=== PATIENT | female | born 1990 | race Caucasian/White ===

== ENCOUNTER 2016-06-29 13:29 | Emergency (ER) | payer OTHER | END 2016-06-29 16:19 | disposition home or self-care (01) | DX: O03.4 Incomplete spontaneous abortion without complication (principal); Z3A.01 Less than 8 weeks gestation of pregnancy ==

== ENCOUNTER 2017-10-15 13:02 | Outpatient (CLI) | payer OTHER | END 2017-10-15 13:03 | disposition home or self-care (01) | LOC: SC 13:02 | PROVIDERS: ATTEND Internal Medicine Pulmonary Disease | DX: G47.21 Circadian rhythm sleep disorder, delayed sleep phase type (principal); G47.8 Other sleep disorders; G47.10 Hypersomnia, unspecified; R53.83 Other fatigue | CPT/HCPCS: 99203; 99212 ==

== ENCOUNTER 2020-08-27 07:34 | Outpatient (CLI) | payer OTHER ==
--- NOTE | 2020-08-27 17:42 | Ultrasound Report ---
PROCEDURE: OB F/U or Repeat INDICATIONS: UTERINE SIZE-DATE DISCREPANCY OUTSIDE/PRIOR DATING DATA: Last menstrual period (LMP): 02/08/2020. LMP-based estimated date of delivery (LANIE): 11/14/2020. TECHNIQUE: Real-time scanning was performed of the fetus, with image documentation and biometric measurements. Endovaginal scanning: Not needed COMPARISON: 06/28/2020 OB ultrasound. FINDINGS: General: A single living intrauterine gestation is present. Presentation: Breech Placenta: Placental position is anterior, without previa. Amniotic fluid index: 12.7 cm, 29.3 for gestational age. heart rate: 153 beats per minute. Maternal cervical canal: Normal. biometrics: Biparietal diameter: 7.7 cm, 31 weeks 0 days Head circumference: 29.1 cm, 32 weeks 0 days Abdominal circumference: 26.1 cm, 30 weeks 2 days Femur length: 5.3 cm, 28 weeks 1 day Estimated gestational age from initial scan: 29 weeks 5 days. Composite gestational age from present scan: 30 weeks 3 days Estimated weight and percentile: 1455 g, 39.5 percentile Measurement variability in biometric dating: +/- 10 days from 12-20 weeks gestation, +/- 2 weeks from 20-30 weeks gestation, +/- 3 weeks at 30 weeks gestation or more. Other: Not applicable. IMPRESSION: Single living intrauterine gestation with appropriate weight and amniotic fluid. G rowth parameters are internally consistent. No anomaly is seen. Reviewed by: Baljinder Marie MD on 08/27/2020 5:40 PM PST Approved by: Baljinder Marie MD on 08/27/2020 5:40 PM PST Station ID: [id number]
== END 2020-08-27 07:35 | disposition home or self-care (01) ==
LOC: DI 07:34
PROVIDERS: ATTEND Nurse Practitioner Obstetrics & Gynecology
DX: O26.843 Uterine size-date discrepancy, third trimester (principal); Z3A.30 30 weeks gestation of pregnancy

== ENCOUNTER 2020-09-03 11:04 | Outpatient (CLI) | payer OTHER ==
[2020-09-03 12:33] LABS: HCT - HEMATOCRIT 41.4 % (37.0-47.0); HGB - HEMOGLOBIN 13.4 g/dL (12.0-16.0); MEAN CORPUSCULAR HEMOGLOBIN 29.1 pg (27.0-31.0); MEAN CORPUSCULAR HGB CONC 32.4 g/dL (32.0-36.0); MEAN CORPUSCULAR VOLUME 89.8 fL (81.0-99.0); MEAN PLATELET VOLUME 9.8 fL (7.9-10.8); RED BLOOD COUNT 4.61 10^6/uL (4.20-5.40); RED CELL DISTRIBUTION WIDTH 12.6 % (12.0-15.0); WHITE BLOOD COUNT 11.8 x10^3/uL (4.8-10.8)
== END 2020-09-03 11:05 | disposition home or self-care (01) ==
LOC: LAB 11:04
PROVIDERS: ATTEND Nurse Practitioner Obstetrics & Gynecology
DX: Z36.8A Encounter for antenatal screening for other genetic defects (principal); Z36.89 Encounter for other specified antenatal screening
CPT/HCPCS: 36415; 81220; 81243; 81329; 81599; 82950; 85027; 86850; 86900; 86901

== ENCOUNTER 2020-10-07 15:13 | Outpatient (CLI) | payer OTHER ==
[2020-10-07 15:28] VITALS: BP 130/72
--- NOTE | 2020-10-07 16:26 | PROVIDER PROGRESS NOTE ---
- HPI Chief Complaint: Labor Check Current : Current EDU 11/07/20 Gestation 35 Weeks and 4 Days 2 Para 1 Vital Signs Temperature 36.8 C 10/07/20 15:27 Heart Rate 103 H 10/07/20 15:27 Respiratory Rate 17 10/07/20 15:27 Blood Pressure 130/72 10/07/20 15:27 O2 Saturation 100 10/07/20 15:27 Temperature 36.8 C 10/07/20 15:27 Heart Rate 103 H 10/07/20 15:27 Respiratory Rate 17 10/07/20 15:27 Blood Pressure 130/72 10/07/20 15:27 O2 Saturation 100 10/07/20 15:27 - Procedures OB Procedure Performed: NST - Plan Plan: Carli is a at 35.4wks gestation who presents with ongoing contractions for the last couple weeks that have intensified in the last 36hours. She denies LOF, VB, or severe pain. She endorses movement SVE: 07/14/-3 (this is unchanged from an office visit last week) FHT 130 moderate variability, accels, no decels Utx- palpate mild. Occurring every 5-10minutes A: False labor FHT Cat I P: Discharge to home with labor contractions Continue with routine care
== END 2020-10-07 16:28 | disposition home or self-care (01) ==
LOC: WFO 15:13 → FBP 15:14 → WFO 16:28
PROVIDERS: ATTEND Advanced Practice Midwife
DX: O47.03 False labor before 37 completed weeks of gestation, third trimester (principal); Z3A.37 37 weeks gestation of pregnancy
CPT/HCPCS: 99214

== ENCOUNTER 2020-10-11 09:56 | Outpatient (CLI) | payer OTHER ==
[2020-10-11 10:36] LABS: BASOPHILS % (AUTO) 0.3 %; EOSINOPHILS # (AUTO) 0.1 10^3/uL (0.0-0.7); EOSINOPHILS % (AUTO) 0.6 %; HCT - HEMATOCRIT 36.7 % (37.0-47.0); LYMPHOCYTES # (AUTO) 1.7 10^3/uL (1.5-3.5); LYMPHOCYTES % (AUTO) 14.9 %; MEAN CORPUSCULAR HEMOGLOBIN 28.4 pg (27.0-31.0); MEAN CORPUSCULAR HGB CONC 32.7 g/dL (32.0-36.0); MEAN CORPUSCULAR VOLUME 86.8 fL (81.0-99.0); MEAN PLATELET VOLUME 9.9 fL (7.9-10.8); MONOCYTES # (AUTO) 0.7 10^3/uL (0.0-1.0); MONOCYTES % (AUTO) 5.8 %; NEUTROPHILS # (AUTO) 8.9 10^3/uL (1.5-6.6); PLT - PLATELET COUNT 234 10^3/uL (130-450); RED BLOOD COUNT 4.23 10^6/uL (4.20-5.40); RED CELL DISTRIBUTION WIDTH 13.2 % (12.0-15.0); WHITE BLOOD COUNT 11.5 x10^3/uL (4.8-10.8)
[2020-10-11 10:48] LABS: ALBUMIN 2.9 g/dL (3.2-5.5); ALBUMIN/GLOBULIN RATIO 0.9 (1.0-2.2); BILIRUBIN,TOTAL 0.2 mg/dL (0.2-1.0); CALCIUM 8.7 mg/dL (8.5-10.3); CREATININE 0.7 mg/dL (0.4-1.0); POTASSIUM 3.6 mmol/L (3.5-5.0); TOTAL PROTEIN 6.3 g/dL (6.7-8.2)
[2020-10-11 10:57] LABS: BILIRUBIN,URINE NEGATIVE (NEGATIVE); GLUCOSE, URINE (UA) NEGATIVE (NEGATIVE); KETONES,URINE (UA) TRACE mg/dL (NEGATIVE); LEUKOCYTE ESTERASE, URINE NEGATIVE (NEGATIVE); NITRITE,URINE NEGATIVE (NEGATIVE); OCCULT BLOOD,URINE NEGATIVE (NEGATIVE); PROTEIN,URINE NEGATIVE (NEGATIVE); UROBILINOGEN,URINE 0.2 (NORMAL) E.U./dL (NORMAL)
[2020-10-11 11:01] LABS: CLARITY,URINE CLEAR (CLEAR)
[2020-10-11 11:08] LABS: CREATININE,URINE 197.5 mg/dL; PROTEIN/CREATININE RATIO,URINE 0.1 (<=0.2)
[2020-10-11 14:35] VITALS: BP 136/87
--- NOTE | 2020-10-11 15:28 | PROVIDER PROGRESS NOTE ---
- HPI Chief Complaint: Other Current : Current EDU 11/07/20 Gestation 36 Weeks and 1 Days 2 Para 1 Vital Signs Temperature 36.7 C 10/11/20 10:02 Heart Rate 121 H 10/11/20 10:02 Respiratory Rate 20 10/11/20 10:02 Blood Pressure 143/100 H 10/11/20 10:02 O2 Saturation 99 10/11/20 10:02 Temperature 36.7 C 10/11/20 10:02 Heart Rate 80 10/11/20 14:35 Respiratory Rate 16 10/11/20 14:35 Blood Pressure 136/87 H 10/11/20 14:35 O2 Saturation 100 10/11/20 14:35 - Procedures OB Procedure Performed: NST NST Procedure: NST Procedure Start Date 10/11/20 Start Time 09:57 Stop Time 10:57 Vibroacoustic Stimulation Used No Patient States Movement Yes: Decreased - Plan Plan: patient evaluated face to face S: Carli presents today as directed following her routine visit after c/o abdominal pain. She reports the pain is 6/10 and she intermittently has to breathe through the pain. She denies it is exacerbated by movement. She denies HERNANDEZ, or visual disturbances. Denies urinary symptoms. Reports regular bowel movement yesterday morning. Denies eating anything out of the ordinary for her. Feels well hydrated and ate a muffin for breakfast. She reports +FM and she denies vaginal bleeding or leakage of fluid. She does report losing her mucus plug yesterday. She denies the pain feels like contractions. She states it is constant and describes a burning sensation in the right lower quadrant. She states it feels deep muscle-like. Denies fever, chills, or body aches. O: NST performed 10/11/2020 NST read 10/11/2020 Initially NST revealed tachycardia with minimal variability and a BPP was performed which was 8/8. NST quickly improved. NST reactive. FHR baseline 140, moderate variability, + accels, no decels. Occasional contractions via tocometry which palpate mild with soft resting tone. BP 130s-140s/80s-90s CBC WNL CMP WNL UA neg Normocephalic, atraumatic Heart RRR w/o M/G/R Lungs CTAB Abdomen gravid and soft. Right lower quadrant tender to palpation. No abdominal rigidity noted. SVE fingertip/25/unengaged. No evidence of vaginal bleeding Bedside ultrasound reveals single, viable intrauterine in BREECH presentation. No evidence of placental abruption via preliminary report. Pt is s/p cholecystectomy. Appendix not visualized on examination. A: 30yo @ 36.1wks gestation BREECH presentation Right lower quadrant abdominal pain - suspect muscular in origin Mild, intermittent elevated BP without the diagnosis for hypertension FHR Category I P: Reviewed warning s/sx and when to present. Return for BP check in the office on . Reviewed PI warning s/sx and when to present urgently. Pt desires attempted external cephalic version - will determine physician workers compensation paralegal and consult to schedule at 37.1wks gestation. Pt verbalized understanding and agrees to above plan. She denies further questions or concerns at this time.
--- NOTE | 2020-10-13 15:09 | Ultrasound Report ---
PROCEDURE: Abdomen Limited INDICATIONS: right sided abd pain, nausea, HTN, LANIE 11/07/2020 TECHNIQUE: Real-time focused scanning was performed of the abdomen, with image documentation. COMPARISON: None FINDINGS: Gallbladder: Cholecystectomy Appendix: Nonvisualized Right kidney: Unremarkable. No evidence of hydronephrosis. IMPRESSION: Nonvisualized appendix. Appendicitis is not excluded. Cholecystectomy Reviewed by: Gerard Alvarez MD on 10/11/2020 1:33 PM PDT Approved by: Gerard Alvarez MD on 10/11/2020 1:33 PM PDT Station ID: [id number]
--- NOTE | 2020-10-13 15:09 | Ultrasound Report ---
PROCEDURE: OB Biophysical Profile INDICATIONS: tachycardia that is now resolved. Donovan decel OUTSIDE/PRIOR DATING DATA: Last menstrual period (LMP): 02/08/2020. LMP-based estimated date of delivery (LANIE): 11/14/2020. First dating scan (date and location): 08/27/2020. Estimated date of delivery (LANIE) from first dating scan: 10/28/2020. TECHNIQUE: Real-time scanning was performed of the fetus, with image documentation and biometric courtney surements. Biophysical profile was also obtained. Endovaginal scanning: Not needed COMPARISON: 08/27/2020 FINDINGS: General: A single living intrauterine gestation is present. Presentation: Breech Placenta: Placental position is anterior, without previa. Amniotic fluid index: 9.0 cm, 9.9 percentile for gestational age. heart rate: 135 beats per minute. Maternal cervical canal: 5.0 cm long; normal length is 2.5 cm or more. Biophysical profile: Tone: 2 points. Movement: 2 points. Respiration: 2 points. Largest pocket of fluid: 2 points. Umbilical artery Doppler: SD ratio 2.19 at the mid cord IMPRESSION: Single live intrauterine consistent with 36 week 1 day gestation Breech presentation. Reviewed by: Gerard Alvarez MD on 10/11/2020 1:45 PM PDT Approved by: Gerard Alvarez MD on 10/11/2020 1:45 PM PDT Station ID: [id number]
== END 2020-10-11 15:00 | disposition home or self-care (01) ==
LOC: WFO 09:56 → FBP 10:00 → WFO 15:00
PROVIDERS: ATTEND Nurse Practitioner Obstetrics & Gynecology
DX: O99.891 Other specified diseases and conditions complicating pregnancy (principal); R10.31 Right lower quadrant pain; O36.8330 Maternal care for abnormalities of the fetal heart rate or rhythm, third trimester, not applicable or unspecified; O32.1XX0 Maternal care for breech presentation, not applicable or unspecified; Z3A.36 36 weeks gestation of pregnancy
CPT/HCPCS: 36415; 59025; 80053; 81001; 81003; 82570; 84156; 85025; 87086; 99213

== ENCOUNTER 2020-10-12 08:00 | Outpatient (CLI) | payer OTHER | END 2020-10-12 23:59 | disposition home or self-care (01) | LOC: LAB.R 08:00 | PROVIDERS: ATTEND Advanced Practice Midwife | DX: Z36.85 Encounter for antenatal screening for Streptococcus B (principal) | CPT/HCPCS: 87797 ==

== ENCOUNTER 2020-10-18 11:25 | Outpatient (CLI) | payer OTHER ==
[2020-10-18] MEDS ORDERED: TERBUTALINE 1 MG/ML VIAL SUBQ ONE (11:40)
[2020-10-18] MEDS ORDERED: ONDANSETRON ODT 4 MG TABLET TL PRN (11:40)
[2020-10-18] MEDS ORDERED: fentaNYL 100 MCG/2 ML VIAL IVP PRN (11:41)
[2020-10-18] MEDS ORDERED: MINERAL OIL LIGHT 10 ML MC ONE (11:41)
[2020-10-18] MEDS ORDERED: ONDANSETRON 4 MG/2 ML VIAL IVP PRN (11:42)
[2020-10-18 11:59] VITALS: BP 137/87
[2020-10-18] MEDS ORDERED: LACTATED RINGERS 1,000 ML IV ONE ×2 (12:33→12:37)
[2020-10-18 12:40] LABS: BASOPHILS % (AUTO) 0.2 %; EOSINOPHILS # (AUTO) 0.1 10^3/uL (0.0-0.7); EOSINOPHILS % (AUTO) 0.6 %; HCT - HEMATOCRIT 38.5 % (37.0-47.0); HGB - HEMOGLOBIN 12.3 g/dL (12.0-16.0); LYMPHOCYTES # (AUTO) 1.6 10^3/uL (1.5-3.5); LYMPHOCYTES % (AUTO) 13.4 %; MEAN CORPUSCULAR HGB CONC 31.9 g/dL (32.0-36.0); MEAN CORPUSCULAR VOLUME 87.7 fL (81.0-99.0); MEAN PLATELET VOLUME 10.5 fL (7.9-10.8); MONOCYTES % (AUTO) 7.9 %; NEUTROPHILS # (AUTO) 9.2 10^3/uL (1.5-6.6); NEUTROPHILS % (AUTO) 76.8 %; PLT - PLATELET COUNT 239 10^3/uL (130-450); RED BLOOD COUNT 4.39 10^6/uL (4.20-5.40); RED CELL DISTRIBUTION WIDTH 13.2 % (12.0-15.0)
--- NOTE | 2020-10-18 14:31 | Ultrasound Report ---
PROCEDURE: OB Limited INDICATIONS: MICHELLE for external version procedure OUTSIDE/PRIOR DATING DATA: Last menstrual period (LMP): 02/08/2020. LMP-based estimated date of delivery (LANIE): 11/14/2020. TECHNIQUE: Real-time scanning was performed of the fetus, with image documentation. Endovaginal scanning: . Not needed. COMPARISON: All prior OB ultrasound studies for this . FINDINGS: A single living intrauterine gestation is present. Presentation: Breech Placenta: Placental position is anterior leftward, without previa. Amniotic fluid index: 8.7 cm, 9.6 percentile for gestational age. heart rate: 140 beats per minutes. Maternal cervical canal: 3.9 cm long; normal length is 2.5 cm or more. Estimated gestational age from initial scan: 37 weeks 1 day. IMPRESSION: 8.7 cm amniotic fluid index, the lower 9.6 percentile for current gestational age. Reviewed by: Baljinder Marie MD on 10/18/2020 2:30 PM PDT Approved by: Baljinder Marie MD on 10/18/2020 2:30 PM PDT Station ID: [id number]
--- NOTE | 2020-10-21 19:12 | PROVIDER PROGRESS NOTE ---
- HPI Chief Complaint: Other (Planned ECV for breech presentation) Current : Current EDU 11/07/20 Gestation 37 Weeks and 1 Days 2 Para 1 Vital Signs Temperature 98.4 F 10/18/20 11:59 Heart Rate 105 H 10/18/20 11:59 Respiratory Rate 16 10/18/20 11:59 Blood Pressure 137/87 H 10/18/20 11:59 O2 Saturation 97 10/18/20 11:59 Temperature 98.4 F 10/18/20 11:59 Heart Rate 105 H 10/18/20 11:59 Respiratory Rate 16 10/18/20 11:59 Blood Pressure 137/87 H 10/18/20 11:59 O2 Saturation 97 10/18/20 11:59 - Exam Paitient is a 30 yo at 37+1 wga with breech presentation here for attempted version. Patient has had one prior vacuum assisted vaginal delivery with shoulder dystocia ten years ago. Patient has been followed by [facility] this and was noted to have breech presentation. She has had en episode of mildly elevated blood pressures about one week ago with neg PIH labs. Allergies: acetaminophen-oxycodone OB Hx: G1: 2010, 6lb4oz male VAVD@ 40wks G2: current PMHx: Surgical Hx: cholecystectomy (2015), breast augmentation (2011), tonsillectomy (2003) Social Hx: Never smoker, no ETOH use in . No IVDA. She is Active duty. FOB Active duty. Family Hx: Diabetes - Father; HTN- farher; [place]-father; Testicular cancer (living)-father; [place]- MGF; Breast cancer - breast cancer PNC as below: LMP 02/08/2020 but reports very irregular menses. Initial U/S 04/11/2020 @ 10.3wks gestation by CRL differs 6 days from LMP dating (irregalar menses) LANIE by U/S 11/07/2020. U/S performed by [facility]. 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 Awaiting FOB results; SMA- negative, Fragile x- negative FAS: 07/08/2020 WNL. Anterior placenta, no previa. 3VC. Size c/w dating. Growth and MICHELLE secondary to size > dates WNL (EFW 39.5%) Glucola: 130 Influenza: declined TDAP: 08/13/2020 GBS & GC/CT at 36 weeks HSV: denies in self and partner Breast pump Rx provided MOD: Anticipate ; FOB Frank Benitez. ; 9yo son - Dov; It's a BOY! - Cameron; desires unmedicated delivery FOB for CF screen Frank Benitez 04/22/72 pp contraception: condoms pap: 2018 neg; neg HPV - Procedures OB Procedure Performed: NST Diagnosis/Indication for NST: Other (pre-procedure for ECV) NST Procedure: NST Procedure Start Date 10/18/20 Start Time 11:45 Stop Time 12:25 Vibroacoustic Stimulation Used No Patient States Movement Yes EFM 145 mod philomena 15x15 accels no decels TOCO: quiet Service Date of procedure: 10/18/20 Findings: GEN: NAD HEAD: NCAT EYES: No scleral icterus or conjunctival injection CV: RRR RESP: CTAB, normal effort ABD: S&NT/ND PSYCH: appropriate affect NEURO: alert and oriented, normal gait and coordination EXT: WWP Breech/transverse presentation with head on maternal left Anterior placenta Bedside us with low MICHELLE RLQ had about 6 cm pocket far lateral edge but not while proble was maintained at 90 to floor. MVP outside 1st quadrant is about 1 cm. Large pcokets of cord with scant fluid. True MICHELLE wabout 6.4 cm Ordered formal US and observed MICHELLE Read as 8.4 but included RLQ pocket measured with probe at 180 to floor; technically inaccurate for MICHELLE measurement - Plan Plan: 30 yo at 37+1 with breech presentation and borderline MICHELLE Reviewed R/B/A to procedure with patient and partner I reviewed my MICHELLE findings and my concern for low likelihood of success given scant fluid and the increased risk of distress given large pockets of umbilical cord without fluid insulation, making it more likely that cord compression may result in distress. Recommended IV fluid bolus, pushing water overnight and repeating attempt in 1-2 days Patient and partner are in agreement with plan. -1000 ml IV bolus of NS given -Cat I tracing DX: Breech presentation at 37+1 wga Borderline MICHELLE More than 45 minutes was spent with patient in face to face contact including bedside US, additional bedside review of formal US with concurrent interpretation of real time images, face to face employee counselor.
== END 2020-10-18 13:30 | disposition home or self-care (01) ==
LOC: WFO 11:25 → FBP 11:27 → WFO 13:30
PROVIDERS: ATTEND Obstetrics & Gynecology
DX: O32.1XX0 Maternal care for breech presentation, not applicable or unspecified (principal); Z3A.37 37 weeks gestation of pregnancy; O41.93X0 Disorder of amniotic fluid and membranes, unspecified, third trimester, not applicable or unspecified
CPT/HCPCS: 76815; 85025; 86850; 86900; 86901; J7120; 59025; 99213

== ENCOUNTER 2020-10-21 07:58 | Outpatient (CLI) | payer OTHER ==
[2020-10-21] MEDS ORDERED: fentaNYL 100 MCG/2 ML VIAL IVP PRN (08:25)
[2020-10-21] MEDS ORDERED: MINERAL OIL LIGHT 10 ML MC ONE (08:25)
[2020-10-21] MEDS ORDERED: TERBUTALINE 1 MG/ML VIAL SUBQ ONE (08:25)
[2020-10-21] MEDS ORDERED: ONDANSETRON 4 MG/2 ML VIAL IVP ONE (09:00)
[2020-10-21 09:18] VITALS: BP 143/93
--- NOTE | 2020-10-21 09:48 | Ultrasound Report ---
PROCEDURE: OB Limited INDICATIONS: Version OUTSIDE/PRIOR DATING DATA: Last menstrual period (LMP): 02/08/2020. LMP-based estimated date of delivery (LANIE): 11/14/2020 Estimated date of delivery (LANIE) according to referring provider: 11/07/2020. TECHNIQUE: Real-time scanning was performed of the fetus, with image documentation. COMPARISON: 10/11/2020 FINDINGS: A single living intrauterine gestation is present. Presentation: Breech Placenta: Placental position is anterior, without previa. Amniotic fluid index: 8.7 cm, 9.6% for gestational age, largest pocket 5.2 cm (previous fluid measure ment on 10/11/2020 was 12.7 cm). heart rate: 140 beats per minutes. Maternal cervical canal: 3.9 cm long; normal length is 2.5 cm or more. Estimated gestational age according to referring provider: 37 weeks 4 days. IMPRESSION: 1. Living late third trimester intrauterine . 2. MICHELLE measures 8.7 cm. Reviewed by: Malvin Conner MD on 10/21/2020 9:46 AM PDT Approved by: Malvin Conner MD on 10/21/2020 9:46 AM PDT Station ID: [id number]
[2020-10-21 10:10] LABS: BASOPHILS % (AUTO) 0.2 %; EOSINOPHILS # (AUTO) 0.1 10^3/uL (0.0-0.7); EOSINOPHILS % (AUTO) 0.8 %; HGB - HEMOGLOBIN 12.6 g/dL (12.0-16.0); LYMPHOCYTES # (AUTO) 1.7 10^3/uL (1.5-3.5); LYMPHOCYTES % (AUTO) 12.8 %; MEAN CORPUSCULAR HEMOGLOBIN 28.9 pg (27.0-31.0); MEAN CORPUSCULAR HGB CONC 33.2 g/dL (32.0-36.0); MEAN CORPUSCULAR VOLUME 87.2 fL (81.0-99.0); MEAN PLATELET VOLUME 11.2 fL (7.9-10.8); MONOCYTES # (AUTO) 0.9 10^3/uL (0.0-1.0); MONOCYTES % (AUTO) 6.8 %; NEUTROPHILS # (AUTO) 10.6 10^3/uL (1.5-6.6); PLT - PLATELET COUNT 254 10^3/uL (130-450); RED BLOOD COUNT 4.36 10^6/uL (4.20-5.40); RED CELL DISTRIBUTION WIDTH 13.5 % (12.0-15.0); WHITE BLOOD COUNT 13.6 x10^3/uL (4.8-10.8)
[2020-10-21 10:27] LABS: CREATININE,URINE 37.6 mg/dL; TOTAL PROTEIN,URINE TIMED < 6 mg/dL
[2020-10-21 11:06] LABS: B. PARAPERTUSSIS- RESP PCR PAN NOT DETECTED; B. PERTUSSIS- RESP PCR PANEL NOT DETECTED; C. PNEUMONIAE- RESP PCR PANEL NOT DETECTED; CORONAVIRUS 229E-RESP PCR NOT DETECTED; CORONAVIRUS HKU1-RESP PCR NOT DETECTED; CORONAVIRUS NL63-RESP PCR NOT DETECTED; CORONAVIRUS OC43-RESP PCR NOT DETECTED; HUMAN METAPNEUMOVIRUS NOT DETECTED; INFLUENZA A- RESP PCR PANEL NOT DETECTED; INFLUENZA B - RESP PCR PANEL NOT DETECTED; M. PNEUMONIAE- RESP PCR PANEL NOT DETECTED; PARAINFLUENZA VIRUS 1 NOT DETECTED; PARAINFLUENZA VIRUS 2 NOT DETECTED; PARAINFLUENZA VIRUS 3 NOT DETECTED; PARAINFLUENZA VIRUS 4 NOT DETECTED; RHINOVIRUS/ENTEROVIRUS NOT DETECTED; RSV- RESP PCR PANEL NOT DETECTED; SARS-CoV-2 -RESP PCR PANEL NOT DETECTED
--- NOTE | 2020-10-22 08:04 | PROVIDER PROGRESS NOTE ---
- HPI Chief Complaint: Malpresentation of fetus Current : Current EDU 11/07/20 Gestation 37 Weeks and 4 Days 2 Para 1 Vital Signs Temperature 98.2 F 10/21/20 08:19 Heart Rate 115 H 10/21/20 08:19 Respiratory Rate 18 10/21/20 08:19 Blood Pressure 151/96 H 10/21/20 08:19 Temperature 98.2 F 10/21/20 08:19 Heart Rate 115 H 10/21/20 08:19 Respiratory Rate 18 10/21/20 08:19 Blood Pressure 143/93 H 10/21/20 09:17 O2 Saturation - Exam GEN: NAD HEAD: NCAT EYES: No scleral icterus or conjunctival injection CV: RRR RESP: CTAB, normal effort ABD: S&NT/ND PSYCH: appropriate affect NEURO: alert and oriented, normal gait and coordination EXT: WWP MICHELLE 6.4 on prelim read NST 140 mod philomena 15x15 accels no decels TOCO: quiet - Procedures OB Procedure Performed: NST Diagnosis/Indication for NST: Other (preprocedure for ECV) NST Procedure: NST Procedure Start Date 10/21/20 Start Time 08:06 Stop Time 08:45 Vibroacoustic Stimulation Used No Patient States Movement Yes Service Date of procedure: 10/21/20 Findings: MICHELLE prelim read was 6.4 cm Cat Delio call Reviewed risks with patient. Patient opting for BPs elevated to mild range No PIH symptoms Normal PIH labs Reviewed clinic records. Has had several mild range pressures after 20 weeks; meets criteria for GHTN With GHTN and borderline MICHELLE, recommend proceeding with CS at 37 weeks Scheduled for 10/22/20 R/B/A reviewed and written informed consents was obtained Preop labs and prior auth obtained CS scheduled for 10/22/20 at 10:30 am - Plan Plan: 35 yo at 37+4 with breech presentation, borderline MICHELLE, and GHTN Reviewed findings Proceeding with CS on 10/22/20 Written informed consent obtained DX: IUP at 37+4 Breech GHTN Borderline MICHELLE
== END 2020-10-21 10:22 | disposition home or self-care (01) ==
LOC: WFO 07:58 → FBP 08:00 → WFO 10:22
PROVIDERS: ATTEND Obstetrics & Gynecology
DX: O32.1XX0 Maternal care for breech presentation, not applicable or unspecified (principal); O13.3 Gestational [pregnancy-induced] hypertension without significant proteinuria, third trimester; Z3A.37 37 weeks gestation of pregnancy; Z20.822 Contact with and (suspected) exposure to COVID-19
CPT/HCPCS: 0202U; 36415; 59025; 76815; 82570; 83615; 84156; 84450; 84550; 85025; 99213

== ENCOUNTER 2020-10-22 08:23 | Inpatient (IN) | payer OTHER ==
[2020-10-22] MEDS ORDERED: OXYTOCIN/SODIUM CHLORIDE 500 ML IV PRN ×2 (08:51→13:17)
[2020-10-22] MEDS ORDERED: oxyCODONE 5 MG TABLET PO PRN (08:51)
[2020-10-22] MEDS ORDERED: SODIUM CHLORIDE FLUSH 0.9% 10 ML SYRINGE IVP PRN (08:51)
[2020-10-22] MEDS ORDERED: ONDANSETRON ODT 4 MG TABLET TL PRN ×2 (08:51→13:17)
[2020-10-22] MEDS ORDERED: SIMETHICONE CHEW 80 MG TABLET PO PRN (08:51)
[2020-10-22] MEDS ORDERED: ACETAMINOPHEN 500 MG TABLET PO SCH (09:00)
[2020-10-22] MEDS ORDERED: KETOROLAC 30 MG/ML VIAL IVP SCH (09:00)
[2020-10-22] MEDS ORDERED: LACTATED RINGERS 1,000 ML IV SCH ×2 (09:00→11:00)
[2020-10-22] MEDS ORDERED: DOCUSATE SODIUM 100 MG CAPSULE PO SCH (09:00)
[2020-10-22] MEDS ORDERED: SODIUM CHLORIDE FLUSH 0.9% 10 ML SYRINGE IVP SCH ×2 (09:00→17:00)
[2020-10-22] MEDS ORDERED: fentaNYL 100 MCG/2 ML VIAL IVP PRN (10:06)
[2020-10-22] MEDS ORDERED: HYDROmorphone 0.5 MG/0.5 ML SYRINGE IVP PRN (10:06)
[2020-10-22] MEDS ORDERED: NALOXONE 0.4 MG/ML VIAL IVP PRN ×2 (10:06→12:12)
[2020-10-22] MEDS ORDERED: MORPHINE 2 MG/ML CARPUJECT IVP PRN (10:06)
[2020-10-22] MEDS ORDERED: METOCLOPRAMIDE 10 MG/2 ML VIAL IVP PRN (10:06)
[2020-10-22] MEDS ORDERED: ePHEDrine 50 MG/ML VIAL IVP PRN (10:06)
[2020-10-22] MEDS ORDERED: ATROPINE ABBOJECT 1 MG/10 ML SYRINGE IVP PRN (10:06)
[2020-10-22] MEDS ORDERED: ONDANSETRON 4 MG/2 ML VIAL IVP PRN (10:06)
--- NOTE | 2020-10-22 10:06 | ANESTHESIA ---
Pre-Anesthesia VS, & Labs - Diagnosis breech presentation - Procedure Primary section Vital Signs: Temp Pulse Resp BP Pulse Ox 37.2 C 10/22/20 09:33 Height: 5 ft 5 in Weight (kg): 98.702 kg Body Mass Index: 36.2 BMI Classification: Obese - NPO >8 hours - Is Patient ?: Yes - Lab Results Lab results reviewed: Yes Home Medications and Allergies Active Medications Acetaminophen (Acetaminophen 500 Mg Tablet) 1,000 mg PO Q8H [facility] Docusate Sodium (Docusate Sodium 100 Mg Capsule) 100 mg PO BID JF Oxytocin/Sodium Chloride (Pitocin/Sodium Chloride) 500 mls @ 999 mls/hr IV PRN PRN; Protocol PRN Reason: POST- HEMORR PREVENTION Lactated Ringer's (Lr) 1,000 mls @ 100 mls/hr IV .Q10H [facility] Ibuprofen (Ibuprofen 600 Mg Tablet) 600 mg PO Q6H [facility] Ketorolac Tromethamine (Ketorolac 30 Mg/Ml Vial) 30 mg IVP Q6H [facility] Stop: 10/23/20 03:01 Ondansetron HCl (Ondansetron Odt 4 Mg Tablet) 4 mg TL Q4H PRN PRN Reason: Nausea / Vomiting Oxycodone HCl (Oxycodone 5 Mg Tablet) 5 mg PO Q4HR PRN PRN Reason: PAIN Simethicone (Simethicone Chew 80 Mg Tablet) 80 mg PO TID PRN PRN Reason: Gas Sodium Chloride (Sodium Chloride Flush 0.9% 10 Ml Syringe) 10 ml IVP PRN PRN PRN Reason: NEEDED PER PROVIDER ORDERS Sodium Chloride (Sodium Chloride Flush 0.9% 10 Ml Syringe) 10 ml IVP 0100,0900,1700 [facility] Allergies/Adverse Reactions: Allergies Allergy/AdvReac Type Severity Reaction Status Date / Time acetaminophen [From Percocet] Allergy Unknown Verified 06/21/14 14:50 oxycodone HCl * Allergy Unknown Verified 06/21/14 14:50 [From Percocet] Anes History & Medical History - Anesthetic History Anesthesia Complications: reports: No previous complications Family history of Anesthesia Complications: Denies Family history of Malignant Hyperthermia: Denies - Medical History Cardiovascular: reports: Hypertension (gestational) Pulmonary: reports: None Gastrointestinal: reports: None Urinary: reports: None Neuro: reports: None Musculoskeletal: reports: None Endocrine/Autoimmune: reports: None Blood Disorders: reports: None Skin: reports: None Smoking Status: Never smoker Psychosocial: reports: No issues indicated History of Cancer?: No - Surgical History General: reports: Cholecystectomy Eyes Ears Nose Throat (EENT): reports: Tonsil/Adenoidectomy Gynecologic: reports: Breast reduction Exam General: Alert, Oriented x3, Cooperative, No acute distress Dental: WNL Mouth Openin Fingerbreadth Neck Mobility: Normal Mallampati classification: I Respiratory: Lungs clear, Normal breath sounds, No respiratory distress, No accessory muscle use Cardiovascular: Regular rate, Normal S1, Normal S2, No murmurs Plan Anesthesia Type: Spinal Consent for Procedure(s) Verified and Reviewed: Yes Code Status: Attempt Resuscitation ASA classification: 2-Mild systemic disease Is this case an emergency?: No
[2020-10-22] MEDS ORDERED: MORPHINE PF 5 MG/10 ML VIAL ONE (10:39)
[2020-10-22] MEDS ORDERED: fentaNYL 100 MCG/2 ML VIAL ONE (10:39)
[2020-10-22] MEDS ORDERED: PHENYLEPHRINE 10 MG/ML VIAL ONE (10:42)
[2020-10-22] MEDS ORDERED: OXYTOCIN 10 UNIT/ML VIAL ONE (10:42)
[2020-10-22] MEDS ORDERED: ceFAZolin 2 GM/50 ML 2 GM/50 ML BAG IV ONE (10:46)
[2020-10-22] MEDS ORDERED: ACETAMINOPHEN 1,000 MG/100 ML 100 ML IV ONE (10:47)
[2020-10-22] MEDS ORDERED: BUPIVACAINE 0.5%-EPI 1:200000 PF 30 ML VIAL ONE (10:48)
--- NOTE | 2020-10-22 10:56 | HISTORY & PHYSICAL EXAMINATION ---
Admit History - : 2 Parity: 1 Smoking Status: Never smoker - Other Maternal History Other Maternal History: Paitient is a 30 yo at 37+5 wga with breech presentation here for scheduled Patient has had one prior vacuum assisted vaginal delivery with shoulder dystocia ten years ago. Patient has been followed by [facility] this and was noted to have breech presentation. She has had an episode of mildly elevated blood pressures about one week ago with neg PIH labs. She has had two AFIs this week that were borderline. ECV could not be performed due to low fluid levels. Patient meets criteria for gestational hypertension. No PIH symptoms and normal labs. Breech presentation. Proceeding with primary c- section for GHTN and borderline fluid. +FM. No TCX/VB/LOF Allergies: acetaminophen-oxycodone OB Hx: G1: 2010, 6lb4oz male VAVD@ 40wks G2: current PMHx: Surgical Hx: cholecystectomy (2015), breast augmentation (2011), tonsillectomy (2003) Social Hx: Never smoker, no ETOH use in . No IVDA. She is Active duty. FOB Active duty. Family Hx: Diabetes - Father; HTN- farher; [place]-father; Testicular cancer (living)-father; [place]- MGF; Breast cancer - breast cancer PNC as below: LMP 02/08/2020 but reports very irregular menses. Initial U/S 04/11/2020 @ 10.3wks gestation by CRL differs 6 days from LMP dating (irregalar menses) LANIE by U/S 11/07/2020. U/S performed by [facility]. 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 Awaiting FOB results; SMA- negative, Fragile x- negative FAS: 07/08/2020 WNL. Anterior placenta, no previa. 3VC. Size c/w dating. Growth and MICHELLE secondary to size > dates WNL (EFW 39.5%) Glucola: 130 Influenza: declined TDAP: 08/13/2020 GBS & GC/CT at 36 weeks HSV: denies in self and partner Breast pump Rx provided MOD: Anticipate ; FOB Frank Benitez. ; 9yo son - Dov; It's a BOY! - Cameron; desires unmedicated delivery FOB for CF screen Frank Benitez 04/22/72 pp contraception: condoms pap: 2018 neg; neg HPV Meds/Allgy - Allergies Allergies/Adverse Reactions: Allergies Allergy/AdvReac Type Severity Reaction Status Date / Time acetaminophen [From Percocet] Allergy Unknown Verified 06/21/14 14:50 oxycodone HCl * Allergy Unknown Verified 06/21/14 14:50 [From Percocet] Review of Systems - Other Findings Other Findings: As per HPI, otherwise remaining systems are negative. Physical - Abdominal Exam Vital Signs: Temp Pulse Resp BP Pulse Ox 99.0 F 10/22/20 09:33 Contraction Frequency (min/apart): irritable - Monitoring Heart Rate Baseline: 150 mod philomena 15x15 accels no decels Strip Review: positive: Category I - Presentation Presentation: positive: Breech - Vaginal Exam Membranes: positive: Membranes intact - Other Notes Labor Progress Note/Additional Text: VS: See Centricity GEN: NAD HEAD: NCAT EYES: No scleral icterus or conjunctival injection CV: RRR RESP: CTAB, normal effort ABD: gravid, S&NT/ND PSYCH: appropriate affect NEURO: alert and oriented, normal gait and coordination EXT: WWP BSUS shows breech presentation Plan for Labor - Plan For Labor Plan for Labor: for Breech presentation in the setting of GHTN and borderline MICHELLE R/B/A reviewed and written informed consent obtained Cefazolin OCTOR Cat I tracing Proceed with CS In-patient care
[2020-10-22] MEDS ORDERED: MORPHINE PF 5 MG/10 ML VIAL IT ONE (11:14)
[2020-10-22] MEDS ORDERED: fentaNYL 100 MCG/2 ML VIAL IT ONE (11:14)
[2020-10-22] MEDS ORDERED: BUPIVACAINE 0.5%-EPI 1:200000 PF 30 ML VIAL SUBQ ONE (11:54)
[2020-10-22] MEDS ORDERED: NALBUPHINE 10 MG/ML AMP IVP PRN (12:12)
[2020-10-22] MEDS ORDERED: KETOROLAC 30 MG/ML VIAL ONE (12:30)
[2020-10-22] MEDS ORDERED: LACTATED RINGERS 1,000 ML IV ONE (13:05)
--- NOTE | 2020-10-22 13:26 | OPERATIVE REPORT ---
Operative Report - General Admit Date: 10/22/20 Procedure Date: 10/22/20 Planned Procedure: Primary low transverse Pre-Op Diagnosis: IUP at 37+5 wga, breech presenation, GHTN, borderline MICHELLE Procedure Performed: Primary low transverse Post Op Diagnosis: Same and delivery of term gestation - Procedure Note Primary Surgeon: Deisy Guerrero MD Secondary Surgeon: MONSE Guo CNM Anesthesia Provider: Goldy lopes CRNA Anesthesia Technique: Spinal Pathology: Placenta for routine discard IV Fluids (mL): 1,300 Estimated Blood Loss (mL): 500 Urine Output (mL): 30 Indications: Patient is a 30 yo at 37+5 wga with complicated by breech presentation, borderline MICHELLE, and gestational hypertension. Patient had presented for ECV and was found to have borderline MICHELLE. She was given IV fluid repletion and had repeat MICHELLE in 48 hours. Repeat MICHELLE was 6.4. Patent also developed gestational hypertension with mild range pressures with indication for delivery at 37 wga. Decision was made to proceed with primary c- section for breech. Findings: Viable male in breech presentation with weight and Apgars pending. Normal uterus, fallopian tubes, and ovaries. Complications: None - Other Other Information/Narrative: Risks benefits and alternatives of the procedure were discussed. Written informed consent was obtained. Patient was taken to the operating room where spinal anesthesia was placed and found to be adequate. She was prepped and draped in the usual sterile fashion in the dorsal supine position with a leftward tilt. Carter catheter was in place. SCDs were in place and activated. Cefazolin 2 g IV was given as a preoperative antibiotic. Preoperative timeout was performed. A total of 20 cc of 1% lidocaine with epinephrine was injected into the suture line prior to making the incision. A Pfannenstiel incision was made in the skin with a scalpel and carried through the underlying layer of fascia in a combination of sharp and blunt dissection. The fascia was incised in the midline, and the incision was extended laterally with the Gonzalez scissors. The superior aspect of the fascial incision was grasped with the Colleen clamps, elevated, and the underlying rectus muscles were dissected off bluntly and sharply using the Gonzalez scissors. Attention was then turned to the inferior aspect of the incision which in a similar fashion was grasped, tented up with Colleen clamps, and the underlying re ctus muscles dissected off bluntly and sharply using Gonzalez scissors. The rectus muscles were then in the midline. The peritoneum was identified, tented up, and entered bluntly. The peritoneal incision was extended superiorly and inferiorly with good visualization of the bladder. The bladder that blade was then inserted. A bladder flap was not created. The lower uterine segment of the uterus was identified, and incised in a transverse fashion with a scalpel. The uterus was entered bluntly. The uterine incision was extended in a craniocaudal fashion by manual stretch. The bladder blade was removed. The was delivered from from breech presentation with routine maneuvers. Baby was wrapped in a warm sterile towel. Delayed cord clamping was performed. After cessation of pulsations, the cord was clamped x2 and cut. The infant was handed off to the waiting pediatric team. The placenta was removed with manual expression. The uterus was not exteriorized. It was cleared of all clots clots and debris via manual swipe using Ray-Marry x2. The uterine incision was then repaired in a running locked fashion using 0 Vicryl suture. The incisoin was reinforced with a running imbricating layer again using 0-Vicryl suture. Excellent hemostasis was obtained. The gutters were cleared of all clots and debris with sloppy wet lap sponges x2. The uterine defect was well visualized in normal anatomic position it was noted again to be hemostatic. The peritoneum was then reapproximated with 2-0 Vicryl in a running fashion. The rectus muscles were then reapproximated using interrupted cuixoh-qk-ekyge sutures using 2-0 Chromic. Good hemostasis was noted. The fascia was then closed using 0 Vicryl in a running fashion starting from the left lateral edge to the midline. A second suture was used to close the fascia in a running fashion starting from the right lateral edge and meeting in the midline, agian using 0-Vicryl. The subcutaneous tissue was then irrigated and closed using 2-0 chromic in a running subcutaneous suture. Skin was closed in a running subcuticular suture using 4-0 Monocryl. Steri-Strips were applied to reinforce the incision and dressing was applied. Procedure was well-tolerated and without complication. Sponge lap and needle counts were correct x2. Patient was taken to recovery room in stable condition. MONSE Guo CNM, assisted with retraction and delivery of the infant.
--- NOTE | 2020-10-22 13:52 | ANESTHESIA POST OP EVALUATION ---
Anesthesia Post Eval - Post Anesthesia Eval Vitals: Last Vital Signs Temp 36.8 C 10/22/20 13:25 Pulse 80 10/22/20 13:30 Resp 17 10/22/20 13:30 BP 132/74 H 10/22/20 13:30 Pulse Ox 98 10/22/20 13:30 CV Function Including HR & BP: Stable Pain Control: Satisfactory Nausea & Vomiting: Negative Mental Status: Baseline Respiratory Status: Airway Patent Hydration Status: Satisfactory Anesthesia Complications: None
[2020-10-22] MEDS: LACTATED RINGERS 1,000 ML IV SCH ×2 (15:07→21:47)
[2020-10-22] MEDS: ACETAMINOPHEN 500 MG TABLET PO SCH ×2 (18:28→20:13)
[2020-10-22] MEDS: KETOROLAC 30 MG/ML VIAL IVP SCH ×2 (18:45)
[2020-10-22] MEDS: DOCUSATE SODIUM 100 MG CAPSULE PO SCH (20:13)
[2020-10-22] MEDS: SIMETHICONE CHEW 80 MG TABLET PO PRN (20:13)
[2020-10-23] MEDS: KETOROLAC 30 MG/ML VIAL IVP SCH ×2 (01:05→06:59)
[2020-10-23] MEDS: SODIUM CHLORIDE FLUSH 0.9% 10 ML SYRINGE IVP PRN ×2 (01:06→06:59)
[2020-10-23] MEDS: oxyCODONE 5 MG TABLET PO PRN ×5 (03:47→21:26)
[2020-10-23] MEDS: ACETAMINOPHEN 500 MG TABLET PO SCH ×3 (04:22→20:22)
[2020-10-23 05:11] LABS: BASOPHILS % (AUTO) 0.2 %; EOSINOPHILS # (AUTO) 0.1 10^3/uL (0.0-0.7); EOSINOPHILS % (AUTO) 0.7 %; HCT - HEMATOCRIT 32.1 % (37.0-47.0); HGB - HEMOGLOBIN 10.9 g/dL (12.0-16.0); LYMPHOCYTES # (AUTO) 1.6 10^3/uL (1.5-3.5); LYMPHOCYTES % (AUTO) 13.7 %; MEAN CORPUSCULAR HEMOGLOBIN 29.7 pg (27.0-31.0); MEAN CORPUSCULAR VOLUME 87.5 fL (81.0-99.0); MONOCYTES # (AUTO) 1.1 10^3/uL (0.0-1.0); MONOCYTES % (AUTO) 9.2 %; NEUTROPHILS # (AUTO) 8.8 10^3/uL (1.5-6.6); NEUTROPHILS % (AUTO) 75.1 %; PLT - PLATELET COUNT 192 10^3/uL (130-450); RED BLOOD COUNT 3.67 10^6/uL (4.20-5.40); RED CELL DISTRIBUTION WIDTH 13.6 % (12.0-15.0); WHITE BLOOD COUNT 11.7 x10^3/uL (4.8-10.8)
[2020-10-23] MEDS: SIMETHICONE CHEW 80 MG TABLET PO PRN (06:59)
[2020-10-23] MEDS: DOCUSATE SODIUM 100 MG CAPSULE PO SCH ×2 (08:00→20:22)
[2020-10-23] MEDS ORDERED: IBUPROFEN 600 MG TABLET PO SCH (09:00)
--- NOTE | 2020-10-23 11:21 | PROVIDER PROGRESS NOTE ---
Subjective - Prog Note Date Prog Note Date: 10/23/20 Prog Note Time: 11:19 - Subjective Subjective: Doing remarkably well. Has been up and ambulating. Tolerating po. . Pain well managed. BF going well. Carter removed and has been voiding. Objective - Vital Signs/Intake & Output Vital Signs: Vital Signs x48h Temp Pulse Resp BP Pulse Ox 10/23/20 09:01 97.3 F L 93 18 129/81 H 99 10/23/20 06:30 20 10/23/20 05:15 18 10/23/20 04:20 97.7 F 71 18 108/55 L 98 Intake & Output: Intake & Output 10/20/20 10/21/20 10/22/20 10/23/20 23:59 23:59 23:59 23:59 Intake Total 2550 1850 Output Total 830 2450 Balance 1720 -600 - Objective General Appearance: positive: No acute distress Neck: positive: Nml inspection Respiratory: positive: Chest non-tender, No respiratory distress, Breath sounds nml Cardiovascular: positive: Regular rate & rhythm Abdomen: positive: Non-tender, No distention, Other (FF below umbi. Dressing with scant drainage and overall CDI) Skin: positive: Color nml Extremities: positive: Non-tender - Lab Results Fish Bones: 10/23/20 05:00 Other Labs: Lab Results x24hrs 10/23/20 Range/Units 05:00 WBC 11.7 H (4.8-10.8) x10^3/uL RBC 3.67 L (4.20-5.40) 10^6/uL Hgb 10.9 L (12.0-16.0) g/dL Hct 32.1 L (37.0-47.0) % MCV 87.5 (81.0-99.0) fL MCH 29.7 (27.0-31.0) pg MCHC 34.0 (32.0-36.0) g/dL RDW 13.6 (12.0-15.0) % Plt Count 192 (130-450) 10^3/uL MPV 10.0 (7.9-10.8) fL Neut # (Auto) 8.8 H (1.5-6.6) 10^3/uL Lymph # (Auto) 1.6 (1.5-3.5) 10^3/uL [place] # (Auto) 1.1 H (0.0-1.0) 10^3/uL Eos # (Auto) 0.1 (0.0-0.7) 10^3/uL Baso # (Auto) 0.0 (0.0-0.1) 10^3/uL Absolute Nucleated RBC 0.00 x10^3/uL Nucleated RBC % 0.0 /100WBC Assessment/Plan - Problem List (1) deliv NOS-unsp Impression: POD#1: Doing remarkably well -Progressing along goals for discharge -Routine pp care -Anticipate DC home in am
[2020-10-23] MEDS: IBUPROFEN 600 MG TABLET PO SCH ×2 (14:00→20:21)
[2020-10-24] MEDS: IBUPROFEN 600 MG TABLET PO SCH ×2 (02:14→09:16)
[2020-10-24] MEDS: oxyCODONE 5 MG TABLET PO PRN ×3 (02:15→10:31)
[2020-10-24] MEDS: ACETAMINOPHEN 500 MG TABLET PO SCH ×2 (04:22→12:20)
[2020-10-24] MEDS: DOCUSATE SODIUM 100 MG CAPSULE PO SCH (09:16)
[2020-10-24 10:54] VITALS: BP 131/82
--- NOTE | 2020-10-24 10:56 | Discharge Plan ---
Discharge Plan Problem Reviewed?: Yes Disposition: 01 Home, Self Care Condition: Good Diet: Regular Activity Restrictions: Additional Comments (See below) Shower Restrictions: Yes (No tub baths or hot tubs for 4 weeks) Plan of Treatment: Ibuprofen 600 mg by mouth every 6 hours as needed for pain Acetaminophen 500-1000 mg by mouth every 8 hours as needed for pain Docusate 100-200 mg by mouth twice a day as needed for constipation Oxycodone 2.5-5 mg by mouth every 4 hours as needed for pain Blood pressure checks: If top number (systolic blood pressure) is greater than 160 or If the bottom number (diastolic pressure) is more than 110 Please contact clinic right away. Additional Instructions or Follow Up instructions: Nothing in the vagina for 6 weeks: No intercourse, tampons, douching Call for: -Fever greater than 100.5 -Pain that does not improve with pain medication -Heavy bleeding in which you are soaking a pad an hour for 2 hours in a row -Incision becomes hot, hard, red, starts to open, or leaks foul smelling fluid No lifting more than 10# for 4 [address] while on narcotics Ok to shower. Let water run over the incision. Do not soap, scrub, or apply lotion. Pat dry with a clean towel or sigrid a hairspring cutter. The surgical stickers will start to peel off and you can remove them when they do. Otherwise, the provider will remove them at your one week follow-up appointment. OK to use an unscented sanitary napkin or clean washcloth to keep the incision dry if the belly folds over the incision. No Smoking: If you smoke, Please STOP! Call for help.
--- NOTE | 2020-10-24 11:20 | PROVIDER PROGRESS NOTE ---
Subjective - Prog Note Date Prog Note Date: 10/24/20 Prog Note Time: 11:18 - Subjective Subjective: Patient is up and ambulating, tolerating po, and voiding. Pain is well managed with pain medications. Had one mildly elevated BP, normal on repeat. No PIH symptoms. Limited to no lochia Objective - Vital Signs/Intake & Output Reviewed Vital Signs: Yes Vital Signs: Vital Signs x48h Temp Pulse Resp BP Pulse Ox 10/24/20 10:54 84 16 131/82 H 98 10/24/20 09:00 98.4 F 96 17 141/81 H 100 10/24/20 04:19 98.4 F 79 16 114/60 98 Intake & Output: Intake & Output 10/21/20 10/22/20 10/23/20 10/24/20 23:59 23:59 23:59 23:59 Intake Total 2550 1850 Output Total 830 3050 Balance 1720 -1200 - Objective General Appearance: positive: No acute distress Respiratory: positive: No respiratory distress Cardiovascular: positive: Other (RR) Peripheral Pulses: 2+ Radial (L), 2+ Popliteal (R), 2+ Popliteal (L) Abdomen: positive: Non-tender, No distention (FF below umbi Dressing removed. Incision CDI with steris in place) Skin: positive: Color nml Extremities: positive: Non-tender, Pedal edema (mile BLE edema, no tenderness of cords) Neurologic/Psychiatric: positive: Oriented x3 - Lab Results Fish Bones: 10/23/20 05:00 Assessment/Plan - Problem List (1) deliv NOS-unsp Impression: POD#2: Doing well Meeting goals for discharge Warning signs reviewed for pp care and for potential pre-eclampsia Provided wit Rx for BP cuff Willl fu in one week for incision and BP check DC to home
--- NOTE | 2020-10-24 11:24 | DISCHARGE SUMMARY ---
"Discharge Summary Admit Date: 10/22/20 Discharge Date: 10/24/20 Discharging Provider: Cesar Condition at Discharge: Good Discharge Disposition: 01 Home, Self Care - DIAGNOSES Admission Diagnoses: IUP at 37+5 wga Gestational hypertension Borderline MICHELLE Breech presentation Discharge Diagnoses with Status of Each Condition: Same and delivery of term gestation - HPI History of Present Illness: Paitient is a 30 yo admitted at 37+5 wga for scheduled . Patient has had one prior vacuum assisted vaginal delivery with shoulder dystocia ten years ago. Patient has been followed by Midwifery this and was noted to have breech presentation. She has had an episode of mildly elevated blood pressures about one week ago with neg PIH labs. She has had two AFIs this week that were borderline. ECV could not be performed due to low fluid levels. Patient meets criteria for gestational hypertension. No PIH symptoms and normal labs. Breech presentation. Proceeding with primary c- section for GHTN and borderline fluid. - CONSULTS | PROCEDURES Procedures: Primary low transverse - HOSPITAL COURSE Hospital Course: Patient was admitted at 37+5 wga for a scheduled primary for breech in the setting of gestational hypertension and borderline MICHELLE. Breech presentation confirmed at admission. Aforementioned procedure was well tolerated and without complicated. Delivered a male form breech presentation with weight 3300 g and Apgars of 8/9. Postoperative course was uncomplicated. Blood pressures remained normal to mild range. By POD#2, patient was meeting goals for discharge and was discharge to home. Rh positive and Rubella immune. - ALLERGIES Allergies/Adverse Reactions: Allergies Allergy/AdvReac Type Severity Reaction Status Date / Time acetaminophen [From Percocet] Allergy Unknown Verified 06/21/14 14:50 oxycodone HCl * Allergy Unknown Verified 06/21/14 14:50 [From Percocet] - MEDICATIONS Home Medications: Ambulatory Orders Medication Instructions Recorded Confirmed Acetaminophen [Acetaminophen Extra 1,000 mg PO Q8H PRN #60 tablet 10/24/20 Strength] Acetaminophen [Acetaminophen Extra 1,000 mg PO Q8H PRN #60 tablet 10/24/20 Strength] Docusate Sodium 100Mg Capsule 100 - 200 mg PO BID PRN #60 cap 10/24/20 [Colace 100Mg Capsule] Docusate Sodium 100Mg Capsule 100 - 200 mg PO BID PRN #60 cap 10/24/20 [Colace 100Mg Capsule] Ibuprofen [Motrin] 600 mg PO Q6H PRN #60 tab 10/24/20 Ibuprofen [Motrin] 600 mg PO Q6H PRN #60 tab 10/24/20 oxyCODONE [Roxicodone] 2.5 - 5 mg PO Q4H PRN #24 tablet 10/24/20 oxyCODONE [Roxicodone] 2.5 - 5 mg PO Q4H PRN #24 tablet 10/24/20 - LABS Result Diagrams: 10/23/20 05:00 - FOLLOW UP Follow Up: [address] Guerrero - TIME SPENT Time Spent in Discharge (Minutes): 30"
--- NOTE | 2020-10-24 14:08 | Labor Flowsheet ---
Labor Flowsheet Datetime Report Generated by CPN: 10/24/2020 14:08 Datetime: 10/22/2020 10:30 UTERINE ACTIVITY Monitor Mode: External Frequency (min): 0 Resting Tone (Palpate): Relaxed ASSESSMENT A Monitor Mode: External US FHR Baseline Rate : 150 Variability: Moderate 6-25 bpm Accelerations: 15X15 Decelerations: None Category: Category I Oxygen Method: Room Air Datetime: 10/22/2020 10:00 Quality: Mild Duration (sec): 80-110 Pattern: Normal: <= 5 Contractions in 10 Minutes Datetime: 10/22/2020 09:20 PATIENT CARE IV/Blood Work: New IV Bag Hung; IV Bag Number @ 1 Datetime: 10/22/2020 08:54 MATERNAL ASSESSMENT Level of Consciousness: Alert Headache: Denies Breath Sounds, Left: Clear and Equal Breath Sounds, Right: Clear and Equal Nausea/Vomiting: Denies RUQ Epigastric Pain: Denies Datetime: 10/22/2020 08:48 VITAL SIGNS NBP Sys/Remedios/Mean (mmHg): 133 : 90 : 101 Pulse: 118 PAIN Pain Presence: None/Denies COMMUNICATION LaborFlag: Labor
== END 2020-10-24 13:40 | disposition home or self-care (01) | DRG 787 ==
LOC: FBP 08:23
PROVIDERS: ADMIT Obstetrics & Gynecology; ATTEND Obstetrics & Gynecology
PROC: 10D00Z1 Extraction of Products of Conception, Low, Open Approach (ICD-10-PCS; principal; 2020-10-22 10:30)
DX: O32.1XX0 Maternal care for breech presentation, not applicable or unspecified (principal); O41.03X0 Oligohydramnios, third trimester, not applicable or unspecified; O13.4 Gestational [pregnancy-induced] hypertension without significant proteinuria, complicating childbirth; Z3A.37 37 weeks gestation of pregnancy; Z37.0 Single live birth
CPT/HCPCS: 36415; 85025; A9270; J0131; J0690; J2274; J7120

== ENCOUNTER 2021-08-18 08:40 | Outpatient (CLI) | payer OTHER | END 2021-08-18 08:41 | disposition EMS.NT | LOC: EMS 08:40 | DX: M54.6 Pain in thoracic spine (principal); V43.52XA Car driver injured in collision with other type car in traffic accident, initial encounter; Y92.414 Local residential or business street as the place of occurrence of the external cause ==

== ENCOUNTER 2021-08-18 12:20 | Emergency (ER) | payer OTHER ==
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
[2021-08-18] MEDS ORDERED: methocarbamoL 500 MG TABLET PO STA (15:10)
[2021-08-18] MEDS ORDERED: IBUPROFEN 600 MG TABLET PO STA (15:10)
[2021-08-18] MEDS ORDERED: HYDROcod/ACETAM 5/325 MG TABLET PO STA (15:10)
[2021-08-18 15:42] VITALS: BP 145/90
== END 2021-08-18 15:58 | disposition home or self-care (01) ==
LOC: ED 12:20
DX: S20.221A Contusion of right back wall of thorax, initial encounter (principal); V43.52XA Car driver injured in collision with other type car in traffic accident, initial encounter; I10 Essential (primary) hypertension
CPT/HCPCS: 71101; 99283; 99284; A9270